=== PATIENT | female | born 1965 | race Caucasian/White ===

== ENCOUNTER 2016-08-15 07:23 | Day surgery (SDC) | payer BC ==
--- NOTE | 2016-08-14 17:23 | PCM.PREANE ---
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 symptoms Respiratory: Reports: no symptoms Cardiovascular: Reports: no symptoms GI: Reports: no symptoms Other: Reports: none - PHYSICAL ASSESSMENT Height: 5 ft 2 in Weight: 81.647 kg ASA Class: 3 Mental Status: alert & oriented x3 Airway Class: Mallampati = 2 Dentition: Reports: normal dentition Thyro-Mental Finger Breadths: 2 Mouth Opening Finger Breadths: 2 ROM/Head Extension: full Respiratory Status: lungs clear to auscultation bilaterally Cardiovascular Status: regular rate & rhythm, normal S1, S2, no murmur, blood pressure WNL - ALLERGIES Allergies/Adverse Reactions: Allergies Allergy/AdvReac Type Severity Reaction Status Date / Time aripiprazole [From Abilify] Allergy Cannot Verified 08/13/16 14:51 Remember - ANESTHESIA PLAN Anesthesia Type Planned: MAC - ACKNOWLEDGEMENTS Pt an appropriate candidate for the planned anesthesia: Yes Alternatives and risks of anesthesia discussed w pt/guardian: Yes Pt/Guardian understands and agree with anesthesia plan: Yes PreAnesthesia Questionnaire - Past Health History Medical/Surgical History: Denies Medical/Surgical History HEENT History: Reports: Allergic rhinitis Cardiovascular History: Reports: None Respiratory History: Reports: Asthma Other Respiratory History: had asthma as a child, no issues now Gastrointestinal History: Reports: Irritable bowel syndrome Genitourinary History: Reports: None REHABILITATION CONSULTANT History: Reports: Musculoskeletal History: Reports: Arthritis, Back pain, chronic Neurological History: Reports: None Psychiatric History: Reports: Anxiety, Depression Other Psychiatric History: H&P states bipolar but pt denies Endocrine/Metabolic History: Reports: Obesity/BMI 30+ Hematologic History: Reports: Blood transfusion(s) Other Hematologic History: blood transfusion for post bleed Immunologic History: Reports: None Oncologic (Cancer) History: Reports: None Dermatologic History: Reports: None - Infectious Disease History Infectious Disease History: Reports: None - Past Surgical History Head Surgeries/Procedures: Reports: None HEENT Surgical History: Reports: Oral surgery Cardiovascular Surgical History: Reports: None Respiratory Surgical History: Reports: None GI Surgical History: Reports: None Female Surgical History: Reports: section, D&C Endocrine Surgical History: Reports: None Neurological Surgical History: Reports: None Musculoskeletal Surgical History: Reports: None Oncologic Surgical History: Reports: None - History Comment History Comment: etoh "1x a week" - SUBSTANCE USE Smoking Status *Q: Never Smoker Second Hand Smoke Exposure: No Recreational Drug Use History: No - HOME MEDS Home Medications: Home Meds Sertraline [Zoloft] 100 mg PO DAILY 05/30/16 [History] Cyclobenzaprine [Flexeril] 10 mg PO ASDIRECTED PRN 08/12/16 [History] Estradiol [Estrace 0.01% Vaginal Crm] 0.5 applic VAG ASDIRECTED 08/12/16 [ History] Omeprazole 40 mg PO DAILY 08/12/16 [History] Ondansetron [Zofran ODT] 1 tab SL ASDIRECTED PRN 08/12/16 [History] Progesterone,Micronized [Prometrium] 1 tab PO ASDIRECTED 08/12/16 [History] Sucralfate 1 tab PO QID 08/12/16 [History] lamoTRIgine [Lamictal] 100 mg PO DAILY 08/12/16 [History] - CURRENT (IN HOUSE) MEDS Current Meds: Current Medications Lactated Ringer's (Ringers, Lactated) 1,000 mls @ 125 mls/hr IV ASDIRECTED JEN
[2016-08-15] MEDS ORDERED: Lidocaine 2% 5 ML SDV ONE (07:28)
[2016-08-15] MEDS ORDERED: Propofol 200 MG/20 ML SDV ONE (07:29)
[2016-08-15] MEDS ORDERED: Lactated Ringers 1,000 ML IV SCH ×2 (08:00→09:45)
--- NOTE | 2016-08-15 09:38 | PCM.OPNOTE ---
- General Post-Op/Procedure Note Date of Surgery/Procedure: 08/15/16 Operative Procedure(s): Esophagogastroduodenoscopy with biopsy Pre Op Diagnosis: Epigastric pain Post-Op Diagnosis: Acute and chronic gastritis Anesthesia Technique: MAC (ASA II) Primary Surgeon: Desean Welsh Stenographer Secretary: Cathleen Mcmillan Condition: Good Free Text/Narrative:: Dictation [id number]
--- NOTE | 2016-08-15 09:54 | OR ---
SURGEON: Desean Welsh M.D. DATE OF PROCEDURE: 08/15/2016 OPERATION PERFORMED: Esophagogastroduodenoscopy with biopsy. SMALL CRAFT OPERATOR: Dr. Mcmillan. ANESTHESIA: Local MAC. ASA CLASSIFICATION: II. PREOPERATIVE DIAGNOSIS: Epigastric pain. POSTOPERATIVE DIAGNOSIS: Acute and chronic gastritis without ulceration. DESCRIPTION OF PROCEDURE: The patient was taken to the endoscopy room, positioned on the endoscopy table in the supine position. Time-out was called for appropriate identification of the patient and procedure. Monitored anesthesia care was provided. The bite block was placed between the patient's teeth. The gastroscope was inserted into the mouth and advanced without difficulty through the esophagus and stomach into the duodenum, where examination was carried out in a retrograde fashion. Duodenum was carefully examined and showed no acute ulcerations with only mild duodenitis. The stomach does show a rather acute gastritis, although no ulcerations were seen. Antral biopsies were obtained to look for the presence of Helicobacter pylori. The gastroscope was retroflexed to visualize the proximal stomach. No proximal gastric lesions were identified. The patient does have a small hiatal hernia that was best visualized as the scope was withdrawn. The GE junction was well defined and showed no acute inflammatory changes. The esophagus demonstrated good contractility. The vocal cords were not visualized as the scope was withdrawn. The patient tolerated the procedure well and was taken to recovery room in stable condition. HUMAIRA FERNANDO /[id number]
[2016-08-15 10:03] VITALS: BP 126/63
--- NOTE | 2016-08-15 11:42 | PCM.POSTAN ---
POST ANESTHESIA ASSESSMENT - MENTAL STATUS Mental Status: alert, oriented - RESPIRATORY Respiratory Status: respiratory rate WNL, airway patent, O2 saturation stable - CARDIOVASCULAR CV Status: pulse rate WNL, blood pressure stable - GASTROINTESTINAL GI Status: no symptoms - POST OP HYDRATION Hydration Status: adequate & stable
--- NOTE | 2016-08-15 11:42 | PCM48HPAN ---
Post Anesthesia Note - EVALUATION WITHIN 48HRS OF ANESTHETIC Vital Signs in Normal Range: Yes Patient Participated in Evaluation: Yes Respiratory Function Stable: Yes Airway Patent: Yes Cardiovascular Function Stable: Yes Hydration Status Stable: Yes Pain Control Satisfactory: Yes Nausea and Vomiting Control Satisfactory: Yes Mental Status Recovered: Yes
== END 2016-08-15 10:04 | disposition home or self-care (01) ==
LOC: MW.SDS 07:23
PROVIDERS: ATTEND Surgery
PROC: 0DB68ZX Excision of Stomach, Via Natural or Artificial Opening Endoscopic, Diagnostic (ICD-10-PCS; principal; 2016-08-15)
DX: K29.00 Acute gastritis without bleeding (principal); K29.50 Unspecified chronic gastritis without bleeding; K44.9 Diaphragmatic hernia without obstruction or gangrene; K29.80 Duodenitis without bleeding; E66.9 Obesity, unspecified; F41.9 Anxiety disorder, unspecified; F32.9 Major depressive disorder, single episode, unspecified; J45.909 Unspecified asthma, uncomplicated; K58.9 Irritable bowel syndrome, unspecified; M19.90 Unspecified osteoarthritis, unspecified site; Z87.440 Personal history of urinary (tract) infections; Z88.8 Allergy status to other drugs, medicaments and biological substances; Z79.899 Other long term (current) drug therapy; Z98.890 Other specified postprocedural states; Z68.33 Body mass index [BMI] 33.0-33.9, adult
CPT/HCPCS: 43239; 88305; 88312; J7120; 00740; J2704

== ENCOUNTER 2016-08-21 06:24 | Day surgery (SDC) | payer BC ==
--- NOTE | 2016-08-20 09:42 | PCM.PREANE ---
Preanesthetic Assessment - ANESTHESIA/TRANSFUSION/FAMILY HX Anesthesia/Transfusion History: Prior Anesthesia (without any complications.) Family History of Anesthesia Reaction: No - REVIEW OF SYSTEMS Constitutional: Reports: no symptoms INVESTIGATIVE ASSISTANT: Reports: no symptoms Respiratory: Reports: no symptoms Cardiovascular: Reports: no symptoms GI: Reports: no symptoms - PHYSICAL ASSESSMENT Height: 1.57 m Weight: 81.5 kg ASA Class: 2 Airway Class: Mallampati = 1 Dentition: Reports: normal dentition ROM/Head Extension: full Respiratory Status: lungs clear to auscultation bilaterally Cardiovascular Status: regular rate & rhythm, normal S1, S2, no murmur - ALLERGIES Allergies/Adverse Reactions: Allergies Allergy/AdvReac Type Severity Reaction Status Date / Time aripiprazole [From Abilify] Allergy Cannot Verified 08/13/16 14:51 Remember - BLOOD Blood Available: No - ANESTHESIA PLAN Preop Beta Ruthy: No Anesthesia Type Planned: general anesthesia - ACKNOWLEDGEMENTS Pt an appropriate candidate for the planned anesthesia: Yes Alternatives and risks of anesthesia discussed w pt/guardian: Yes Pt/Guardian understands and agree with anesthesia plan: Yes PreAnesthesia Questionnaire - Past Health History Medical/Surgical History: Denies Medical/Surgical History HEENT History: Reports: Allergic rhinitis Cardiovascular History: Reports: None Respiratory History: Reports: Asthma Other Respiratory History: had asthma as a child, no issues now Gastrointestinal History: Reports: Irritable bowel syndrome Genitourinary History: Reports: None Other Genitourinary History: currently ADDICTIONS COUNSELOR History: Reports: Musculoskeletal History: Reports: Back pain, chronic Neurological History: Reports: None Psychiatric History: Reports: Bipolar Endocrine/Metabolic History: Reports: None Hematologic History: Reports: None Immunologic History: Reports: None Oncologic (Cancer) History: Reports: None Dermatologic History: Reports: None - Infectious Disease History Infectious Disease History: Reports: None - Past Surgical History Head Surgeries/Procedures: Reports: None HEENT Surgical History: Reports: Oral surgery Cardiovascular Surgical History: Reports: None Respiratory Surgical History: Reports: None GI Surgical History: Reports: None, EGD Female Surgical History: Reports: section, D&C Endocrine Surgical History: Reports: None Neurological Surgical History: Reports: None Musculoskeletal Surgical History: Reports: None Oncologic Surgical History: Reports: None - History Comment History Comment: etoh "1x a week" - SUBSTANCE USE Smoking Status *Q: Never Smoker Second Hand Smoke Exposure: No Recreational Drug Use History: No - HOME MEDS Home Medications: Home Meds Sertraline [Zoloft] 100 mg PO DAILY 05/30/16 [History] Cyclobenzaprine [Flexeril] 10 mg PO ASDIRECTED PRN 08/12/16 [History] Estradiol [Estrace 0.01% Vaginal Crm] 0.5 applic VAG ASDIRECTED 08/12/16 [ History] Omeprazole 40 mg PO DAILY 08/12/16 [History] Ondansetron [Zofran ODT] 1 tab SL ASDIRECTED PRN 08/12/16 [History] Progesterone,Micronized [Prometrium] 1 tab PO ASDIRECTED 08/12/16 [History] Sucralfate 1 tab PO QID 08/12/16 [History] lamoTRIgine [Lamictal] 100 mg PO DAILY 08/12/16 [History] - CURRENT (IN HOUSE) MEDS Current Meds: Current Medications Lactated Ringer's (Ringers, Lactated) 1,000 mls @ 125 mls/hr IV ASDIRECTED [facility] Cefoxitin Sodium 2 gm/ Premix 50 mls @ 100 mls/hr IV ONETIME ONE Stop: 08/21/16 06:29
[~2016-08-21 06:24] MED LIST: Lactated Ringers 1,000 ML IV SCH; cefOXitin 2 GM in Premix Bag 1 BAG IV ONE
[2016-08-21] MEDS ORDERED: ceFAZolin 1 GM Vial ONE (07:14)
[2016-08-21] MEDS ORDERED: Bupivacaine 0.5% 30 ML SDV ONE (07:14)
[2016-08-21] MEDS ORDERED: Lidocaine 2% 5 ML SDV ONE (07:20)
[2016-08-21] MEDS ORDERED: Midazolam 1 MG/ML 2 ML SDV ONE (07:21)
[2016-08-21] MEDS ORDERED: fentaNYL 250 MCG/5 ML SDV ONE (07:21)
[2016-08-21] MEDS ORDERED: Propofol 200 MG/20 ML SDV ONE (07:21)
[2016-08-21] MEDS ORDERED: fentaNYL 100 MCG/2 ML SDV ONE (07:21)
[2016-08-21] MEDS ORDERED: Ondansetron 4 MG/2 ML SDV ONE (07:22)
[2016-08-21] MEDS ORDERED: Neostigmine Methylsulfate 1 MG/ML 5 ML Syringe ONE (07:22)
[2016-08-21] MEDS ORDERED: Rocuronium 10 MG/ML 10 ML Syringe ONE (07:22)
[2016-08-21] MEDS ORDERED: HYDROmorphone 2 MG/ML Syringe ONE (07:28)
[2016-08-21] MEDS ORDERED: ePHEDrine 50 MG/ML SDV ONE (08:15)
[2016-08-21] MEDS ORDERED: Labetalol 5 MG/ML 5 ML Syringe ONE (08:33)
[2016-08-21] MEDS ORDERED: HYDROmorphone 2 MG/ML Syringe IVPUSH ONE (08:34)
[2016-08-21] MEDS ORDERED: fentaNYL 100 MCG/2 ML SDV IVPUSH PRN (08:34)
[2016-08-21] MEDS ORDERED: Acetaminophen/HYDROcodone 325-5 MG Tab PO PRN (09:18)
[2016-08-21] MEDS ORDERED: Morphine 10 MG/ML Syringe IVPUSH PRN (09:18)
--- NOTE | 2016-08-21 09:21 | PCM.OPNOTE ---
- General Post-Op/Procedure Note Date of Surgery/Procedure: 08/21/16 Operative Procedure(s): Laparoscopic cholecystectomy Pre Op Diagnosis: Chronic right upper quadrant pain. Abnormal hepatobiliary scan. Post-Op Diagnosis: Chronic cholecystitis Primary Surgeon: Desean Welsh Ruby Rails Developer: Cathleen Mcmillan Fluid Replacement, Intraop: 1,200 EBL in mLs: 5 Condition: Good Free Text/Narrative:: Dictation [id number]
[2016-08-21] MEDS ORDERED: Lactated Ringers 1,000 ML IV SCH (09:30)
--- NOTE | 2016-08-21 12:09 | OR ---
SURGEON: Desean Welsh M.D. DATE OF PROCEDURE: 08/21/2016 OPERATION PERFORMED: Laparoscopic cholecystectomy. GRAPE GROWER: Dr. Mcmillan. ANESTHESIA: General endotracheal. ASA CLASSIFICATION: II. PREOPERATIVE DIAGNOSES: Chronic right upper quadrant pain, multiple food intolerances, abnormal HIDA scan. POSTOPERATIVE DIAGNOSES: Chronic right upper quadrant pain, multiple food intolerances, abnormal HIDA scan. ESTIMATED BLOOD LOSS: 5 mL. INTRAOPERATIVE FLUID REPLACEMENT: 1200 mL of crystalloid. DESCRIPTION OF PROCEDURE: The patient was taken to the operating room and placed on the operating table in the supine position. Time-out was called for appropriate identification of the patient and procedure. Thigh-high TEDs and sequential compression boots were placed. Following satisfactory attainment of general endotracheal anesthesia, a Bal catheter was placed in the patient's urinary bladder. The abdomen was prepped with DuraPrep solution and sterile drapes were applied. The skin just above the umbilicus was infiltrated with 0.5% Marcaine solution. The skin incision was made and deepened through the subcutaneous tissue obtaining hemostasis with the use of electrocautery. The Veress needle was introduced into the peritoneal cavity. Saline drop test was positive. Carbon dioxide pneumoperitoneum was established with the relief set at 13 cm of water. Once a satisfactory pneumoperitoneum was established, 5 mm camera and port were placed through the supraumbilical incision. Under camera vision, 12 mm subxiphoid, 5 mm midclavicular, and 5 mm anterior axillary ports were placed. Each incision was preemptively infiltrated with 0.5% Marcaine solution. The gallbladder was grasped. Adhesions were taken down and the cholecystohepatic triangle was dissected free identifying the cystic duct and cystic artery. Critical view of both structures was obtained. Once we had completely cleared the structures they were hemo-clipped proximally and distally with 2 clips on the patient's side. These structures were serially divided with the laparoscopic Metzenbaum scissor. The gallbladder was then dissected away from its bed using electrocautery. Some bile was spilled and care was taken to aspirate this. Once gallbladder was completely amputated, it was placed in an Endopouch. The Endopouch was left in place, while the bed of the gallbladder was irrigated with sterile saline solution. Following that Surgicel was placed into the bed of the gallbladder. No bile leak was noted. The right hemidiaphragm was then irrigated with 200 mL of saline with 20 mL of 0.5% Marcaine. That fluid was left in place. The Endopouch containing gallbladder and 12 mm subxiphoid port were removed without difficulty. Under camera vision, both 5 mm ports were removed and finally the supraumbilical camera and port were removed. Wounds were inspected for hemostasis and bleeding sites were electrocoagulated. The supraumbilical and subxiphoid incisions were closed in 2 layers approximating the subcutaneous tissue with 3-0 Vicryl and the skin with subcuticular 4-0 Monocryl. The anterior, axillary, and midclavicular incisions were closed with subcuticular 4-0 Monocryl. All incisions were Steri-Stripped and dressed with sterile Tegaderm pads. Sponge, needle, and instrument counts were all correct. Bal catheter was removed prior to emergence from anesthesia. Following emergence from anesthesia and extubation, the patient was taken to recovery room in stable condition. HUMAIRA / KASSIE /[id number]
[2016-08-21 15:25] VITALS: BP 135/72
== END 2016-08-21 15:25 | disposition home or self-care (01) ==
LOC: MW.SDS 06:24
PROVIDERS: ATTEND Surgery
PROC: 0FT44ZZ Resection of Gallbladder, Percutaneous Endoscopic Approach (ICD-10-PCS; principal; 2016-08-21)
DX: K81.1 Chronic cholecystitis (principal); F41.9 Anxiety disorder, unspecified; F32.9 Major depressive disorder, single episode, unspecified; E66.9 Obesity, unspecified; K58.9 Irritable bowel syndrome, unspecified; J30.9 Allergic rhinitis, unspecified
CPT/HCPCS: 47562; 88304; J1170; J2250; J2405; J2710; J3010; J7120; 00790; J0690; J2704

== ENCOUNTER → 2016-09-08 | Outpatient (CLI) | payer BC ==
--- NOTE | 2016-09-09 09:21 | CR ---
EXAMINATION: Right elbow HISTORY: Injury COMPARISON: None TECHNIQUE: 2 views FINDINGS/IMPRESSION: There is no acute osseous abnormality, dislocation, or fracture identified. Bon e mineralization and joint spaces appear normal. No soft tissue swelling or joint effusion.
== END | disposition home or self-care (01) ==
LOC: MW.CHOBGYN 13:22
PROVIDERS: ATTEND Nurse Practitioner Women's Health
DX: S59.901A Unspecified injury of right elbow, initial encounter (principal); S59.919A Unspecified injury of unspecified forearm, initial encounter; S69.90XA Unspecified injury of unspecified wrist, hand and finger(s), initial encounter
CPT/HCPCS: 73070-26-RT; 73070-RT